=== PATIENT | female | born 1970 | race Two or more races ===

== ENCOUNTER 2017-12-21 09:06 | Outpatient (CLI) | payer OTHER | END 2017-12-21 09:24 | disposition home or self-care (01) | LOC: NUCLEAR 09:06 | DX: E05.90 Thyrotoxicosis, unspecified without thyrotoxic crisis or storm (principal) | CPT/HCPCS: 78012; A9531 ==

== ENCOUNTER 2017-12-22 08:36 | Outpatient (CLI) | payer OTHER | END 2017-12-22 09:01 | disposition home or self-care (01) | LOC: NUCLEAR 08:36 | DX: E05.90 Thyrotoxicosis, unspecified without thyrotoxic crisis or storm (principal) | CPT/HCPCS: 78013; A9512 ==

== ENCOUNTER 2017-12-25 14:02 | Outpatient (CLI) | payer OTHER | END 2017-12-25 14:16 | disposition home or self-care (01) | LOC: NUCLEAR 14:02 | DX: E05.00 Thyrotoxicosis with diffuse goiter without thyrotoxic crisis or storm (principal) | CPT/HCPCS: 79005; A9517 ==